=== PATIENT | female | born 1980 | race Caucasian/White ===

== ENCOUNTER 2025-05-11 14:59 | Emergency (ER) | payer OTHER, SELFPAY ==
[2025-05-11 15:05] VITALS: BP 136/86
[2025-05-11 15:19] LABS: Hematocrit 36.1 % (37.0-47.0); Hemoglobin 11.8 g/dL (12.0-16.0); Mean Corp Hgb Conc. 32.7 g/dL (33.0-37.0); Mean Corpuscular Volume 90.0 fL (81.0-99.0); Nucleated Red Blood Cells % 0 %; Platelet Count 366 10^3/uL (130-400); Red Cell Dist. Width 13.6 % (11.5-14.5)
[2025-05-11 15:42] LABS: HCG, Serum Qualitative Screen Negative
[2025-05-11 15:44] LABS: ALT (SGPT) 11 U/L (0-35); AST (SGOT) 18 U/L (14-36); Albumin 4.6 g/dl (3.5-5.0); Alkaline Phosphatase 51 U/L (38-126); Blood Urea Nitrogen 14 mg/dl (7-17); Calcium 9.6 mg/dl (8.4-10.2); Carbon Dioxide 28 mmol/L (22-30); Chloride 105 mmol/L (98-107); Glucose 95 mg/dl (70-99); Potassium 4.1 mmol/L (3.5-5.1); Sodium 140 mmol/L (135-145); Total Protein 7.4 g/dl (6.3-8.2); eGFR > 60.00
[2025-05-11 17:31] VITALS: BP 108/65
[2025-05-11 19:11] VITALS: BP 117/71
[2025-05-11] MEDS: TYLENOL 1000 MG PO (19:12)
--- NOTE | 2025-05-11 20:54 | ED.GENMED ---
History of Present Illness
General
Chief Complaint: Vaginal Bleeding
Source: patient
Exam Limitations: none
Time Seen by Provider: 05/11/25 18:11
Nursing documentation reviewed up to this point in time: agreed with
History of Present Illness
History of Present Illness:
Patient to ED wt complaint of heavy vaginal bleeding. She states her period have alsways been heavy but over the past few months bleeding has become much worse. She was placed on Xochitl FE 21 days ago by her provider. Her period started a day or
2 after. Reports initially spotting and then increasing in flow. Now passing large clots. Told to stop OBC and come to ED for eval. Has not had a [employer] exam in approx 5 years.
Past History
Past History
ED Past Medical History: None
Review of Systems
Review of Systems
Allergies reviewed?: Yes
All Other Systems: ROS reviewed and negative except as documented in HPI and ROS
Constitutional: Reports no symptoms
EENT: Reports no symptoms
Respiratory: Reports no symptoms
Cardiac: Reports no symptoms
ABD/GI: Reports other (pelvic cramping)
: Reports bleeding (heavy vaginal bleeding)
Musculoskeletal: Reports no symptoms
Skin: Reports no symptoms
Neurological: Reports no symptoms
Psychiatric: Reports no symptoms
Phy Exam
General Physical Exam
General Presentation: well appearing and mild distress
General age: appears stated age
General Skin: warm and dry
General Habitus: normal
General Mental: alert
Cardiovascular Exam
Cardiovascular Exam: regular rate/rhythm and no edema
Gastrointestinal Exam
Gastrointestinal Exam: normal bowel sounds, non tender, soft, no organomegaly, no pulsatile mass and non distended
Genitourinary Exam Female
Exam Female: no adnexal tenderness, no CMT, no lesions, no mass and vaginal bleeding
Vaginal Exam: other (Quarter size clot at cervix, no active bleeding on speculum exam)
Musculoskeletal Exam
Musculoskeletal Exam: full ROM and neuro vasc intact
Skin Exam
Skin Exam: normal color, warm/dry and no rash
Psychiatric Exam
Psychiatric Exam: normal mood/affect
Course
Orders/Labs/Results
Orders:
Orders
05/11/25 15:05
Test Result ONCE
05/11/25 15:10
Type+Screen Urgent
Complete Blood Count/With Diff Urgent
Comprehensive Metabolic Panel Urgent
HCG, Serum Qualitative Screen Urgent
05/11/25 15:15
ABO2 Urgent
BBK Wristband Number:
Associate notified that ABO2 has been ordered: [id number]
Date: 05/11/25
Time: 15:15
[facility] Home ID: [id number]
05/11/25 18:27
US Pelvis W Transvag Combined Urgent
Reason For Exam: heavy bleeding
05/11/25 19:11
Acetaminophen [Tylenol] 1,000 mg PO NOW STA
05/11/25 21:30
Tranexamic Acid [Cyklokapron] 1,300 mg PO NOW STA
Abnormal Lab Results
05/11/25
15:10
RBC 4.01 L 10^6/uL
(4.20-5.40)
Hgb 11.8 L g/dL
(12.0-16.0)
Hct 36.1 L %
(37.0-47.0)
MCHC 32.7 L g/dL
(33.0-37.0)
05/11/25 15:10
05/11/25 15:10
Vital Signs
Initial and Last Documented VS:
Initial Vital Signs
Temp Pulse Resp BP Pulse Ox
98.6 F 98 16 136/86 98
05/11/25 15:05 05/11/25 15:05 05/11/25 15:05 05/11/25 15:05 05/11/25 15:05
Last Documented Vital Signs
Temp Pulse Resp BP Pulse Ox
98.6 F 73 16 117/71 100
05/11/25 15:05 05/11/25 19:11 05/11/25 19:11 05/11/25 19:11 05/11/25 19:11
*Radiology
Radiology exam reviewed: radiology read reviewed
*Pulse Oximetry
SaO2: 100
Oxygen Mode of Delivery: Room air
Patient hypoxic: no
*Critical Care Note
Total Time (30-74mins, 75-104mins- exclusive of procedures): Not Applicable
Update Note
Update Note:
Patient to ED with report of heavy vaginal bleeding. States she is using 10+ tmpons/ day. VSS, normotensive. Labs reviewed. Hgb11.8/hct36.1, platelets 366. Speculum exam with quartier size clot at cervix, no active bleedinv noted. Normal
pelvic US. Case discussed with Dr. Perkins. Will start TXA tonight in ED and continue TID x 5 days. SHe will follow up in office with Dr. Perkins tomorrow at 8AM. Patient is agreeable to plan.
ED Attending Note
-
Portions of this chart may have been created with voice recognition software.� Occasional wrong word or��sound alike� substitutions may have occurred due to the inherent limitations of voice recognition software.
Discharge Plan
Departure
Patient Disposition: Home (Routine Discharge)
Date of Disposition: 05/11/25
Time of Disposition: 21:30
Patient with high blood pressure during this ER visit?: No
Condition: Good
Discharge Problem:
Abnormal vaginal bleeding
Instructions: Heavy Periods (DC)
Prescriptions:
New
tranexamic acid 650 mg tablet
1,300 mg PO TID 5 Days Qty: 30 0RF
Referrals:
Josseline Perkins MD [Active, Gynecology] - Tomorrow
UNKNOWN - PT DOES,NOT KNOW [Family Provider]
Activity Restrictions/Additional Instructions:
Dr. Perkins will see you at 8AM tomorrow 05/12/2025 at her office [address] [facility], [address]. The office sits behind the [facility] on [address]
Interventions
Interventions:
*Risk Screen - Suicide Last Done: 05/11/25 15:05
*Neglect/Abuse Screening Last Done: 05/11/25 15:05
ED-Female Genitourinary Assessment Last Done: 05/11/25 19:13
Discharge Date and Time
Print Language: ROMANSH
[2025-05-11] MEDS: CYKLOKAPRON 1300 MG PO (22:37)
[2025-05-11 22:41] VITALS: BP 133/83; BMI 26.2
== END 2025-05-11 22:48 | disposition home or self-care (01) ==
LOC: EMR 14:59
PROVIDERS: Emergency Medicine; EMERGENCY PHYSICIAN Emergency Medicine
DX: N93.9 Abnormal uterine and vaginal bleeding, unspecified (principal)
CPT/HCPCS: 99284; 76830; 76856; 80053; 84703; 85025; 86850; 86900; 86901